=== PATIENT | female | born 1970 | race Caucasian/White ===

== ENCOUNTER 2019-07-28 15:57 | Emergency (ER) | payer OTHER ==
[~2019-07-28] VITALS: Ht 157.5 cm; Wt 122.5 kg
[2019-07-28 16:34] LABS: HEMATOCRIT 44.7 % (37.0-47.0); HEMOGLOBIN 14.7 gm/dL (12.0-15.0); MCH 30.8 pg (26.0-34.0); MCHC 32.9 g/dL (28.0-37.0); MCV 93.6 fL (80.0-100.0); RBC 4.77 mil/uL (4.20-5.00); RDW 13.7 % (10.5-14.5); WBC 7.1 thou/uL (4.0-11.0)
[2019-07-28 16:35] LABS: ABSOLUTE NEUTROPHILS 3.9 thou/uL (1.4-8.2); BASOPHILS 1.1 % (0.0-2.0); EOSINOPHILS 2.2 % (0.0-3.0); LYMPHOCYTES 33.4 % (24.0-44.0); MONOCYTES 8.2 % (1.0-8.0); PLATELET COUNT 335 thou/uL (150-400); POLYS 55.1 % (36.0-66.0)
[2019-07-28 16:42] LABS: ANION GAP 11 mmol/L (7-16); BUN 22 mg/dL (7-18); CALCIUM 9.9 mg/dL (8.5-10.1); CHLORIDE 102 mmol/L (98-107); CO2 28 mmol/L (21-32); CREATININE 1.3 mg/dL (0.6-1.0); GLUCOSE 93 mg/dL (74-106); POTASSIUM 4.5 mmol/L (3.5-5.1); SODIUM 141 mmol/L (136-145)
[2019-07-28 16:51] LABS: ALBUMIN 4.7 g/dL (3.4-5.0); SGOT 14 U/L (15-37); SGPT 29 U/L (30-65); TOTAL BILIRUBIN 0.5 mg/dL (<0.1-1.0); TOTAL PROTEIN 9.6 g/dL (6.4-8.2); TROPONIN-I <0.06 ng/mL (<0.06)
--- NOTE | 2019-07-28 17:15 | EKG ---
[facility] [place] [address] ELECTROCARDIOGRAM REPORT Name: KARLEE WINSTON Room #: REG NIDHI Saab#: [id number] Admission: 07/28/19 Attend Phys: Discharge: Date of : 74 Report #: [id number] THIS REPORT FOR: //name// [facility] ED Test Date: 2019-07-28 Test Time: 16:01:09 Pat Name: KARLEE WINSTON Department: Room: Gender: F Digester Operator: SHUKRI : 1970 Requested By: Jose Roberto Myers Order Number: [id number] MD: Julio Souza Measurements Intervals [place] Rate: 107 P: 56 IA: 142 QRS: 63 QRSD: 83 T: 24 QT: 324 QTc: 433 Interpretive Statements Sinus tachycardia Low voltage, precordial leads No previous ECG available for comparison Electronically Signed On 07-28-2019 17:14:51 TIP MENDER by Julio Souza [email or web address] <ELECTRONICALLY SIGNED> By: Julio Souza MD, [facility] 07/28/19 1714 1601 1601 Julio Souza MD, FACC /EPI
[2019-07-28 18:21] VITALS: BP 106/76
== END 2019-07-28 18:21 | disposition home or self-care (01) ==
LOC: ER 15:57
PROVIDERS: Emergency Medicine
DX: R51 Headache (principal); E86.0 Dehydration; M25.531 Pain in right wrist; E11.9 Type 2 diabetes mellitus without complications; I10 Essential (primary) hypertension; F31.9 Bipolar disorder, unspecified; J44.9 Chronic obstructive pulmonary disease, unspecified; F20.9 Schizophrenia, unspecified

== ENCOUNTER 2019-09-12 11:16 | Inpatient (IN) | payer OTHER ==
[~2019-09-12] VITALS: Ht 162.6 cm; Wt 127.1 kg
[2019-09-12 11:16] VITALS: BP 111/60
[2019-09-12 11:45] LABS: HEMATOCRIT 33.5 % (37.0-47.0); HEMOGLOBIN 10.9 gm/dL (12.0-15.0); MCH 30.6 pg (26.0-34.0); MCHC 32.5 g/dL (28.0-37.0); MCV 94.1 fL (80.0-100.0); PLATELET COUNT 257 thou/uL (150-400); RBC 3.56 mil/uL (4.20-5.00); RDW 13.5 % (10.5-14.5); WBC 17.6 thou/uL (4.0-11.0)
[2019-09-12 11:58] LABS: ANION GAP 7 mmol/L (7-16); BUN 16 mg/dL (7-18); CALCIUM 8.9 mg/dL (8.5-10.1); CHLORIDE 106 mmol/L (98-107); CO2 30 mmol/L (21-32); GLUCOSE 122 mg/dL (74-106); POTASSIUM 4.2 mmol/L (3.5-5.1); SODIUM 143 mmol/L (136-145)
[2019-09-12] MEDS ORDERED: DESYREL150 MG PO (12:01)
[2019-09-12] MEDS ORDERED: BUSPIRONE HCL10 MG PO (12:01)
[2019-09-12] MEDS ORDERED: VERAPAMIL HCL180 M2 PO (12:01)
[2019-09-12] MEDS ORDERED: LIPITOR 40 MG T40 M1 PO (12:02)
[2019-09-12] MEDS ORDERED: VENLAFAXINE HC150 M1 PO (12:02)
[2019-09-12] MEDS ORDERED: GABAPENTIN 100100 MG PO (12:02)
[2019-09-12] MEDS ORDERED: TYLENOL WITH CO1 TA1 PO (12:02)
[2019-09-12] MEDS ORDERED: VRAYLAR6 MG PO (12:02)
[2019-09-12] MEDS ORDERED: HALOPERIDOL10 MG PO (12:02)
[2019-09-12] MEDS ORDERED: LINZESS72 MCG PO (12:02)
[2019-09-12] MEDS ORDERED: LEVO-T100 MCG PO (12:02)
[2019-09-12] MEDS ORDERED: LORAZEPAM 1 MG T1 MG PO (12:03)
[2019-09-12] MEDS ORDERED: BENZTROPINE ME0.5 MG PO (12:03)
[2019-09-12] MEDS ORDERED: TIZANIDINE HCL 22 M1 PO (12:03)
[2019-09-12] MEDS ORDERED: KLOR-CON M2020 MEQ PO (12:03)
[2019-09-12] MEDS ORDERED: OXYBUTYNIN CHLO10 MG PO (12:03)
[2019-09-12] MEDS ORDERED: NYAMYC15 GM TOP (12:03)
[2019-09-12] MEDS ORDERED: CHANTIX1 MG PO (12:03)
[2019-09-12] MEDS ORDERED: PEPCID20 MG PO (12:07)
[2019-09-12 12:08] LABS: URINE BILIRUBIN NEGATIVE (Negative); URINE BLOOD TRACE (Negative); URINE CLARITY CLOUDY; URINE COLOR YELLOW; URINE GLUCOSE-RANDOM* NEGATIVE (Negative); URINE KETONES NEGATIVE (Negative); URINE PROTEIN (DIPSTICK) 2+ (Negative); URINE SPECIFIC GRAVITY 1.025 (1.005-1.035)
[2019-09-12] MEDS ORDERED: ASA81BEC PO (12:08)
[2019-09-12] MEDS ORDERED: FLONASE 0.05%50 MCG NARES (12:08)
[2019-09-12] MEDS ORDERED: VENLAFAXINE HCL75 M2 PO (12:09)
[2019-09-12 12:10] LABS: URINE LEUKOCYTES-REFLEX 1+ (Negative); URINE NITRITE-REFLEX POSITIVE (Negative)
[2019-09-12 12:14] LABS: ALBUMIN 2.8 g/dL (3.4-5.0); DIRECT BILIRUBIN 0.2 mg/dL (<0.1-0.2); SGOT 16 U/L (15-37); SGPT 21 U/L (30-65); TOTAL BILIRUBIN 0.9 mg/dL (<0.1-1.0); TOTAL PROTEIN 6.5 g/dL (6.4-8.2); TROPONIN-I <0.06 ng/mL (<0.06)
[2019-09-12 12:50] LABS: CASTS None Seen /LPF (None Seen); SQUAMOUS 0-3 Few /LPF (0-3)
[2019-09-12 12:51] LABS: AMORPHOUS PHOSPHATES Moderate /LPF (None Seen); TRIPLE PHOSPHATE CRYSTALS 0-3 Few /LPF (None Seen); URINE RBC 0-2 Rare /HPF (0-2)
[2019-09-12 12:55] LABS: ABSOLUTE NEUTROPHILS 14.1 thou/uL (1.4-8.2); PLATELET ESTIMATE NORMAL
[2019-09-12 13:44] LABS: BE(vivo) -1.9 mmol/L (-2 to +3); HCO3 24.5 mmol/L (22.0-26.0); PCO2 48.9 mmHg (35.0-45.0); PO2 96.3 mmHg (80.0-100.0); pH 7.318 (7.360-7.450); sO2 96.8 % (92.0-98.0)
[2019-09-12 14:08] VITALS: BP 109/76
--- NOTE | 2019-09-12 14:19 | EKG ---
[facility] [place] [address] ELECTROCARDIOGRAM REPORT Name: KARLEE WINSTON Room #: REG [facility].#: [id number] Admission: 09/12/19 Attend Phys: Discharge: Date of : 74 Report #: [id number] THIS REPORT FOR: cc: Wade Parr MD, Srinath MD Couchonnal,Javon Simeon MD ~ THIS REPORT FOR: //name// [facility] ED Test Date: 2019-09-12 Test Time: 11:46:18 Pat Name: KARLEE WINSTON Department: Room: Gender: F Gas Meter Repairer: ALEJO : 1970 Requested By: Tila Mcgregor Order Number: [id number] MD: Javon Almeida Measurements Intervals [place] Rate: 109 P: 48 MS: 149 QRS: 38 QRSD: 78 T: 13 QT: 280 QTc: 378 Interpretive Statements Sinus tachycardia Low voltage, precordial leads Baseline wander in lead(s) V1 Compared to ECG 07/28/2019 16:01:09 No significant changes Electronically Signed On 09-12-2019 14:18:44 CDT by Javon Almeida [email or web address] <ELECTRONICALLY SIGNED> By: Javon Almeida MD 09/12/19 1418 1146 1146 Javon Almeida MD /EPI
[2019-09-12 17:55] VITALS: BP 119/83
--- NOTE | 2019-09-12 18:58 | NUR ---
PT ARRIVED TO UNIT APPROX 17:29. PT UP AD ASHELY WITH STEADY BALANCED GAIT. DENIES PAIN, N/V, OR SOA. PT ON 6L NC, STATES A GOAL THAT SHE, "WANTS THIS JUNK OUT OF MY LUNGS." ADMISSION COMPLETED. PASSED IN REPORT TO MEHUL VOGT THAT MEDICATION ORDERED IS NOT ON UNIT AND MESSAGE HAS BEEN SENT TO PHARMACY.
[2019-09-12 19:08] VITALS: BP 125/66
--- NOTE | 2019-09-12 21:34 | NUR ---
PT WATCHING TV RESTING IN BED. O2 PER NC. LUNGS COARSE. SUPRA CATH INTACT. ABD FOLD RED RASH, NYSTATIN PROVIDED. PT SBA WITH AMBULATION TO RESTROOM. BLE AND BUE EDEMA. PT OBESE. PT REQUESTED DINNER AND PROVIDED. PT DECLINED SCDS. PT REQUESTED ROOM BE KEPT DARK. GOOD EYE CONTACT, BLUNTED AFFECT, APPROPRIATE AND PLEASANT COMMUNICATION.
[2019-09-12 23:48] VITALS: BP 133/64
--- NOTE | 2019-09-13 02:48 | NUR ---
PT HAS BEEN EMPTYING HER CATHETER BAG. PT EDUCATED STAFF WILL EMPTY R/T I&O.
[2019-09-13 03:23] VITALS: BP 140/75
[2019-09-13 06:45] LABS: BASOPHILS 0.1 % (0.0-2.0); HEMATOCRIT 34.2 % (37.0-47.0); HEMOGLOBIN 11.1 gm/dL (12.0-15.0); LYMPHOCYTES 6.3 % (24.0-44.0); MCH 30.4 pg (26.0-34.0); MCHC 32.3 g/dL (28.0-37.0); MONOCYTES 3.2 % (1.0-8.0); PLATELET COUNT 269 thou/uL (150-400); POLYS 90.4 % (36.0-66.0); RBC 3.64 mil/uL (4.20-5.00); RDW 13.6 % (10.5-14.5); WBC 13.3 thou/uL (4.0-11.0)
[2019-09-13 07:00] LABS: CALCIUM 9.6 mg/dL (8.5-10.1); MAGNESIUM 1.9 mg/dL (1.8-2.4); POTASSIUM 4.2 mmol/L (3.5-5.1)
[2019-09-13 07:33] VITALS: BP 141/107
--- NOTE | 2019-09-13 11:19 | NUR ---
WOUND CONSULT; WOUND CARE WAS CONSULTED TO ASSESS THE PANNOUS RASH. THE AREA IS ANGERY RED. ODOROUS, AND TENDER. THIS IS CONSISTANT WITH S/S OF A FUNGAL ETIOLOGY. RECOMMEDNATION; CLEANS WITH SOAPY WATER, APPLY INTERDRY DAILY/PRN. RN PRESENT
[2019-09-13 11:39] VITALS: BP 130/69
[2019-09-13 15:24] VITALS: BP 141/76
--- NOTE | 2019-09-13 16:10 | NUR ---
INITIAL ASSESSMENT: SW reviewed chart and spoke with nursing and attending physician. Pt was admitted from [facility] due to COPD/pneumonia. Pt was out of room during SW visit. Discharge back to [facility] is anticipated for tomorrow. SW updated [facility] liaison. SW is following to assist as needed with discharge planning.
--- NOTE | 2019-09-13 18:27 | NUR ---
PT REPORTED MIGRAINE HEADACHE PAIN AND IT WAS RELIEVED WITH IMITREX SC X 2 DOSES...HOME MEDS WILL BE RESUMED TONIGHT..
[2019-09-13 19:40] VITALS: BP 131/63
--- NOTE | 2019-09-14 03:08 | NUR ---
Pt is alert and oriented x4. VSS. Pulse has been 100-135 when she is moving around in the room to BR. HRR St. O2 4LNC is on. Lungs are diminshed mitchell. Unlabored on 4l. Nystatin appied to pannus. Interdry intact. medicated with 2 tylenol for c/o PARKER. Pt fell asleep without difficulty. NO s/s distress. gait is steady to the BR.
[2019-09-14 04:15] VITALS: BP 115/70
--- NOTE | 2019-09-14 04:29 | NUR ---
Pt c/o frontal PARKER. Medicated with 2 tylenol. Lungs diminished. Unlabored on 4lnc. NO s/s distress. presently resting quietly.
[2019-09-14 07:59] VITALS: BP 127/74
[2019-09-14 09:48] LABS: ABSOLUTE NEUTROPHILS 7.5 thou/uL (1.4-8.2); BASOPHILS 0.9 % (0.0-2.0); EOSINOPHILS 1.6 % (0.0-3.0); HEMATOCRIT 36.5 % (37.0-47.0); HEMOGLOBIN 11.8 gm/dL (12.0-15.0); LYMPHOCYTES 15.7 % (24.0-44.0); MCH 30.1 pg (26.0-34.0); MCHC 32.4 g/dL (28.0-37.0); MCV 93.1 fL (80.0-100.0); MONOCYTES 4.9 % (1.0-8.0); PLATELET COUNT 301 thou/uL (150-400); POLYS 76.9 % (36.0-66.0); RBC 3.92 mil/uL (4.20-5.00); RDW 13.4 % (10.5-14.5); WBC 9.8 thou/uL (4.0-11.0)
[2019-09-14 09:56] LABS: CALCIUM 9.3 mg/dL (8.5-10.1); CREATININE 1.2 mg/dL (0.6-1.0); POTASSIUM 3.7 mmol/L (3.5-5.1)
[2019-09-14 11:26] VITALS: BP 122/75
[2019-09-14] MEDS ORDERED: MUCINEX600 MG PO (13:11)
[2019-09-14] MEDS ORDERED: CEFDINIR300 MG PO (13:12)
--- NOTE | 2019-09-14 14:32 | NUR ---
DISCHARGE NOTE: SW reviewed chart and spoke with nursing and attending physician. Pt is medically stable for discharge back to [facility] today. SW met with pt at bedside to provide update. Pt is aware and in agreement with discharge plan. SHIRLEY faxed final discharge orders/summary [facility] liaison. SHIRLEY arranged w/c van transportation with O2 to the [facility] through [facility]. Director of Case Mgmt approved w/c van transportation. No additional SW needs identified at this time, but is available to assist should needs arise.
[2019-09-14 15:16] VITALS: BP 140/95
--- NOTE | 2019-09-14 18:20 | NUR ---
assumed care of pt at 0700. pt aox3 in no acute distress. breathing comfortably on 2L NC. voicing no particular concerns. multiple attempts made to call report to [facility] - voice mail left two times. no call back.
== END 2019-09-14 16:17 | DRG 871 ==
LOC: ER 11:16 → EROBS 14:19 → 3W 14:19
PROVIDERS: Emergency Medicine; Hospitalist; Nurse Practitioner; ADMIT Internal Medicine
DX: A41.9 Sepsis, unspecified organism (principal); J96.21 Acute and chronic respiratory failure with hypoxia; J18.9 Pneumonia, unspecified organism; N39.0 Urinary tract infection, site not specified; I13.0 Hypertensive heart and chronic kidney disease with heart failure and stage 1 through stage 4 chronic kidney disease, or unspecified chronic kidney disease; E46 Unspecified protein-calorie malnutrition; Z68.42 Body mass index [BMI] 45.0-49.9, adult; I50.9 Heart failure, unspecified; F20.9 Schizophrenia, unspecified; E11.22 Type 2 diabetes mellitus with diabetic chronic kidney disease; N18.9 Chronic kidney disease, unspecified; F31.9 Bipolar disorder, unspecified; M32.9 Systemic lupus erythematosus, unspecified; E78.5 Hyperlipidemia, unspecified; F41.9 Anxiety disorder, unspecified; F39 Unspecified mood [affective] disorder; F43.10 Post-traumatic stress disorder, unspecified; G47.00 Insomnia, unspecified; F17.210 Nicotine dependence, cigarettes, uncomplicated; N31.9 Neuromuscular dysfunction of bladder, unspecified; J44.9 Chronic obstructive pulmonary disease, unspecified; D64.9 Anemia, unspecified; Z93.50 Unspecified cystostomy status; Z79.82 Long term (current) use of aspirin; Z79.891 Long term (current) use of opiate analgesic; I25.2 Old myocardial infarction; Z95.5 Presence of coronary angioplasty implant and graft; Z79.899 Other long term (current) drug therapy; Z88.8 Allergy status to other drugs, medicaments and biological substances; Z99.81 Dependence on supplemental oxygen
CPT/HCPCS: 10879